=== PATIENT | male | born 1960 | race Two or more races ===

== ENCOUNTER 2020-07-12 22:35 | Emergency (ER) | payer MEDICAID ==
[~2020-07-12] VITALS: Ht 177.8 cm; Wt 84.8 kg
[~2020-07-12 22:35] MED LIST: ASPI325T4 PO; ENAL20TA8 PO; FENO160T8 PO; METF-370 PO; TRIA50TA2 PO
[2020-07-12 23:12] LABS: Urine Bacteria NONE SEEN /hpf (None Seen); Urine Blood Negative /uL (Negative); Urine Specific Gravity 1.022 (1.001-1.035); Urine WBC <1 /hpf (0 - 3)
[2020-07-13 03:00] VITALS: BP 144/91
[2020-07-13] MEDS ORDERED: cefTRIAXone SOD 1,000 MG VL IM ONE (03:00)
== END 2020-07-13 03:22 | disposition home or self-care (01) ==
LOC: ER 22:36
DX: N48.22 Cellulitis of corpus cavernosum and penis (principal)
CPT/HCPCS: 81001; 96372; 99283; J0696

== ENCOUNTER 2020-11-06 09:28 | Emergency (ER) | payer MEDICAID ==
[~2020-11-06] VITALS: Ht 177.8 cm; Wt 71.7 kg
[2020-11-06 10:01] VITALS: BP 142/82
== END 2020-11-06 10:37 | disposition home or self-care (01) ==
LOC: ER 09:28
DX: B37.42 Candidal balanitis (principal); I10 Essential (primary) hypertension; E11.9 Type 2 diabetes mellitus without complications; E78.5 Hyperlipidemia, unspecified; Z79.82 Long term (current) use of aspirin; Z79.899 Other long term (current) drug therapy

== ENCOUNTER 2020-11-12 10:10 | Emergency (ER) | payer MEDICAID ==
[~2020-11-12] VITALS: Ht 177.8 cm; Wt 71.7 kg
[2020-11-12] MEDS ORDERED: LIDOCAINE 1% HCL (LOCAL ANESTH.) INJ 20ML MDV ONE (11:29)
[2020-11-12] MEDS ORDERED: cefTRIAXone SOD 1,000 MG VL IM ONE (11:30)
[2020-11-12 11:40] VITALS: BP 143/95
== END 2020-11-12 11:50 | disposition home or self-care (01) ==
LOC: ER 10:10
DX: B37.42 Candidal balanitis (principal); L08.9 Local infection of the skin and subcutaneous tissue, unspecified; I10 Essential (primary) hypertension; E11.9 Type 2 diabetes mellitus without complications; E78.5 Hyperlipidemia, unspecified; Z79.82 Long term (current) use of aspirin; Z79.899 Other long term (current) drug therapy
CPT/HCPCS: 96372; 99283; J0696; J2001

== ENCOUNTER 2022-05-27 17:59 | Emergency (ER) | payer MEDICAID ==
[~2022-05-27] VITALS: Ht 177.8 cm; Wt 87.6 kg
[2022-05-27 19:02] LABS: Urine Bacteria FEW /hpf (None Seen); Urine Blood Negative /uL (Negative); Urine WBC <1 /hpf (0 - 3)
[2022-05-27] MEDS ORDERED: HYDROcodone-ACET 10/325MG TAB PO ONE (19:15)
[2022-05-27] MEDS ORDERED: DexAMETHasone SOD PHOS 10MG/1ML VIAL INJ IM ONE (19:15)
[2022-05-27 19:28] LABS: Basophils # (auto) 0 10 ^3/uL (0-0.2); Basophils % (auto) 0.5 % (0.0-2.0); Eosinophils # (auto) 0.1 10 ^3/uL (0-0.8); Eosinophils % (auto) 1.3 % (0.0-7.0); Hematocrit 41.1 % (41.0-53.0); Hemoglobin 14.2 g/dL (13.5-17.5); Lymphocytes % (auto) 33.5 % (10.0-50.0); Mean Corpuscular Hemoglobin 30.5 pg (28.0-32.0); Mean Corpuscular Hgb Conc. 34.6 g/dL (32.0-36.0); Mean Corpuscular Volume 88.1 fL (80.0-100.0); Monocytes # (auto) 0.8 10 ^3/uL (0-1.3); Monocytes % (auto) 8.8 % (0.0-12.0); Neutrophils # (auto) 4.9 10 ^3/uL (1.6-8.6); Neutrophils % (auto) 55.9 % (37.0-80.0); Nucleated Red Blood Cells % 0.1 %; Red Blood Cells 4.66 10^6/uL (4.5-5.90); Red Cell Distribution Width 13.2 % (11.8-14.3); White Blood Cell 8.8 10^3/uL (4.4-10.8)
[2022-05-27 19:44] LABS: Albumin 4.2 g/dL (3.4-5.0); BUN/Creatinine Ratio 15.7 (10.0-20.0); Calcium 9.1 mg/dL (8.5-10.1); Potassium 4.5 mmol/L (3.5-5.1)
[2022-05-27 19:47] LABS: Bilirubin, Total 0.5 mg/dL (0.2-1.0); Total Protein 7.1 g/dL (6.4-8.2)
[2022-05-27] MEDS ORDERED: IBUP800T26 PO (20:25)
[2022-05-27] MEDS ORDERED: CEPH-510 PO (20:25)
[2022-05-27] MEDS ORDERED: HYDR-4902 PO (20:25)
[2022-05-27 20:35] VITALS: BP 127/79
== END 2022-05-27 20:37 | disposition home or self-care (01) ==
LOC: ER 17:59
DX: M77.32 Calcaneal spur, left foot (principal); L08.9 Local infection of the skin and subcutaneous tissue, unspecified; I10 Essential (primary) hypertension; E11.9 Type 2 diabetes mellitus without complications; E78.5 Hyperlipidemia, unspecified; Z79.82 Long term (current) use of aspirin; Z79.899 Other long term (current) drug therapy
CPT/HCPCS: 36415; 73630; 80053; 81001; 85025; 85652; 96372; 99284; J1100

== ENCOUNTER → 2023-10-31 | Outpatient (CLI) | payer MEDICAID ==
[~2023-10-31] MED LIST changes: -ASPI325T4 PO; +ASPI325T6 PO; +CEPH-510 PO; +ENAL1TAB48 PO; -ENAL20TA8 PO; +FENO160T PO; -FENO160T8 PO; +HYDR-4902 PO; +IBUP-1455 PO; -TRIA50TA2 PO; +TRIA75TA11 PO
== END | disposition home or self-care (01) ==
LOC: Rad HDHVI 10:15
PROVIDERS: ATTEND Internal Medicine Cardiovascular Disease
DX: I10 Essential (primary) hypertension (principal)
CPT/HCPCS: 93880

== ENCOUNTER → 2023-11-09 | Outpatient (CLI) | payer MEDICAID ==
[~2023-11-09] VITALS: Ht 177.8 cm; Wt 88.5 kg
== END | disposition home or self-care (01) ==
LOC: Rad HDHVI 09:20
PROVIDERS: ATTEND Internal Medicine Cardiovascular Disease
DX: R00.0 Tachycardia, unspecified (principal); I10 Essential (primary) hypertension; E78.5 Hyperlipidemia, unspecified; E11.9 Type 2 diabetes mellitus without complications; R06.09 Other forms of dyspnea; R53.83 Other fatigue
CPT/HCPCS: 78452; 93017; 96374; A9500